=== PATIENT | female | born 1995 | race Caucasian/White ===

== ENCOUNTER 2019-01-20 04:40 | Emergency (ER) | payer MEDICAID ==
[~2019-01-20] VITALS: Ht 154.9 cm; Wt 83.9 kg
[2019-01-20 05:20] VITALS: BP 12/69
[2019-01-20] MEDS ORDERED: CEFTRIAXONE 500 MG VIAL IM ONE (06:30)
[2019-01-20] MEDS ORDERED: CEFTRIAXONE 500 MG VIAL ONE (07:20)
[2019-01-20 07:21] LABS: APPEARANCE,URINE CLOUDY (CLEAR); BILIRUBIN,URINE NEGATIVE (NEGATIVE); BLOOD, URINE NEGATIVE Ery/uL (NEGATIVE); COLOR,URINE DARK YELLOW (YELLOW); KETONES,URINE TRACE (NEGATIVE); LEUKOCYTE ESTERASE ,URINE TRACE (NEGATIVE); NITRITE, URINE POSITIVE (NEGATIVE); PROTEIN,URINE TRACE mg/dl (NEGATIVE); UGLUCOSE NEGATIVE (NEGATIVE); UROBILINOGEN,URINE 0.2 EU/dL (0.2)
[2019-01-20] MEDS ORDERED: LIDOCAINE HCL/MPF 1% 30 ML VIAL IJ ONE (07:21)
[2019-01-20 07:32] LABS: BACTERIA,URINE Many /HPF (None Seen); RBC,URINE 0-2 /HPF (0-2)
[2019-01-20 07:33] LABS: MUCUS,URINE Moderate /LPF (None Seen); SQUAMOUS EPITHELIAL CELL,UR Few /HPF (None Seen)
== END 2019-01-20 07:30 | disposition home or self-care (01) ==
LOC: ER 04:40
DX: N39.0 Urinary tract infection, site not specified (principal); K21.9 Gastro-esophageal reflux disease without esophagitis
CPT/HCPCS: 81001; 87086; 96372; 99283; J0696; J3490; 81000-TC; 87186-TC

== ENCOUNTER 2019-03-18 01:50 | Emergency (ER) | payer MEDICAID, OTHER ==
--- NOTE | 2019-03-18 02:03 | NUR ---
URINE COLLECTED AND SENT TO LAB
[2019-03-18] MEDS ORDERED: NITROFURANTOIN/NITROFURAN MAC 100 MG CAPSULE ONE (03:48)
[2019-03-18 04:20] LABS: APPEARANCE,URINE Clear (CLEAR); BILIRUBIN,URINE Negative (NEGATIVE); BLOOD, URINE Negative Ery/uL (NEGATIVE); COLOR,URINE Yellow (YELLOW); KETONES,URINE Negative (NEGATIVE); LEUKOCYTE ESTERASE ,URINE Small (NEGATIVE); NITRITE, URINE Negative (NEGATIVE); PROTEIN,URINE Trace mg/dl (NEGATIVE); UGLUCOSE Negative (NEGATIVE); UROBILINOGEN,URINE 0.2 EU/dL (0.2)
[2019-03-18 05:04] LABS: BACTERIA,URINE Moderate /HPF (None Seen); RBC,URINE 21-50 /HPF (0-2); SQUAMOUS EPITHELIAL CELL,UR Moderate /HPF (None Seen)
== END 2019-03-18 04:19 | disposition home or self-care (01) ==
LOC: ER 01:52
DX: O23.40 Unspecified infection of urinary tract in pregnancy, unspecified trimester (principal); O99.619 Diseases of the digestive system complicating pregnancy, unspecified trimester; K21.9 Gastro-esophageal reflux disease without esophagitis
CPT/HCPCS: 81000-TC; 87086-TC

== ENCOUNTER 2024-07-15 08:03 | Emergency (ER) | payer MEDICAID, OTHER ==
[~2024-07-15] VITALS: Ht 162.6 cm; Wt 113.4 kg
[2024-07-15] MEDS ORDERED: IBUP-1955 PO (08:19)
[2024-07-15 09:07] VITALS: BP 121/80; TEMP 98; O2SAT 99
== END 2024-07-15 09:07 | disposition home or self-care (01) ==
LOC: ER 08:09
DX: M25.562 Pain in left knee (principal); M25.561 Pain in right knee; K21.9 Gastro-esophageal reflux disease without esophagitis; V03.90XA Pedestrian on foot injured in collision with car, pick-up truck or van, unspecified whether traffic or nontraffic accident, initial encounter; Y93.89 Activity, other specified; Y92.488 Other paved roadways as the place of occurrence of the external cause; Y99.8 Other external cause status
CPT/HCPCS: 73564-TC